=== PATIENT | male | born 1970 | race African-American/Black ===

== ENCOUNTER 2022-05-12 17:30 | Emergency (ER) | payer MEDICAID ==
[~2022-05-12] VITALS: Ht 165.1 cm; Wt 68.9 kg
[2022-05-12] MEDS ORDERED: HALOPERIDOL LACTATE INJ 5 MG/ML VIAL IM ONE (18:00)
[2022-05-12] MEDS ORDERED: diphenhydrAMINE HCL 50 MG/ML VIAL IM ONE (18:00)
[2022-05-12] MEDS ORDERED: LORAZEPAM INJ 2 MG/ML VIAL IM ONE (18:00)
[2022-05-12] MEDS ORDERED: HALOPERIDOL LACTATE INJ 5 MG/ML VIAL ONE (18:25)
[2022-05-12] MEDS ORDERED: diphenhydrAMINE HCL 50 MG/ML VIAL ONE (18:25)
[2022-05-12] MEDS ORDERED: LORAZEPAM INJ 2 MG/ML VIAL ONE (18:26)
[2022-05-12 19:31] LABS: CALCIUM, SERUM 8.5 mg/dL (8.5-10.1); CARBON DIOXIDE 31 mmol/L (21-32); CHLORIDE 112 mmol/L (98-107); CREATININE 1.1 mg/dL (0.6-1.3); GLUCOSE 85 mg/dL (74-106); SODIUM SERUM 139 mmol/L (136-145); UREA NITROGEN, BLOOD 16 mg/dL (7-18)
[2022-05-12 19:35] LABS: BILIRUBIN,URINE 1+ (NEGATIVE); COLOR,URINE DARK YELLOW (YELLOW); LEUKOCYTE ESTERASE ,URINE NEGATIVE (NEGATIVE); NITRITE, URINE NEGATIVE (NEGATIVE); PROTEIN,URINE TRACE mg/dl (NEGATIVE); UGLUCOSE NEGATIVE (NEGATIVE); UROBILINOGEN,URINE 0.2 EU/dL (0.2)
[2022-05-12 19:37] LABS: ALANINE AMINOTRANSFERASE 25 U/L (12-78); ALBUMIN 3.3 g/dL (3.4-5.0); ALCOHOL, BLOOD < 3 mg/dL (0-0); ALKALINE PHOSPHATASE 100 U/L (46-116); ASPARTATE AMINOTRANSFERASE 28 U/L (15-37); BILIRUBIN,DIRECT 0.1 mg/dL (0.0-0.2); BILIRUBIN,TOTAL 0.2 mg/dL (0.2-1.0); TOTAL PROTEIN, SERUM 6.8 g/dL (6.4-8.2)
[2022-05-12 19:40] LABS: ACETAMINOPHEN 0 ug/ml (10-30)
[2022-05-12 19:41] LABS: BACTERIA,URINE Rare /HPF (None Seen); RBC,URINE 0-2 /HPF (0-2); SQUAMOUS EPITHELIAL CELL,UR Few /HPF (None Seen); WBC,URINE 0-2 /HPF (0-3)
[2022-05-12 19:55] LABS: BASOPHILS % (AUTO) 0.8 % (0.0-2.0); EOSINOPHILS % (AUTO) 1.1 % (0.0-6.0); HEMATOCRIT 26 % (39-51); HEMOGLOBIN 8.1 g/dL (13.5-17.5); LYMPHOCYTES # (AUTO) 2.2 K/uL (0.8-4.8); LYMPHOCYTES % (AUTO) 34.4 % (20.0-44.0); MEAN CORPUSCULAR HGB CONC 31 g/dl (31.0-36.0); MEAN CORPUSCULAR VOLUME 68 fL (80-96); MONOCYTES # (AUTO) 0.6 K/uL (0.1-1.30); MONOCYTES % (AUTO) 9.5 % (2.0-12.0); NEUTROPHILS # (AUTO) 3.4 K/uL (1.8-8.9); NEUTROPHILS % (AUTO) 54.2 % (43.0-81.0); PLATELET COUNT (AUTO) 459 K/uL (150-450); RED BLOOD CELL COUNT(AUTO) 3.85 MIL/uL (4.5-6.0); WHITE BLOOD COUNT (AUTO) 6.3 K/uL (4.3-11.0)
--- NOTE | 2022-05-12 21:09 | NUR ---
COVID SWAB COLLECTED AND SENT TO LAB.
--- NOTE | 2022-05-13 07:05 | NUR ---
ZAHIDA AT BEDSIDE FOR EVAL. 5150 HOLD BROKEN.
--- NOTE | 2022-05-13 08:00 | NUR ---
Pt AAO, Apprpriate/responsive. Able to follow commands GCS-15. BRP. Ambulatory- gait steady Ate 2 breakfasts
--- NOTE | 2022-05-13 08:53 | NUR ---
Pt states "Ok Im done- see you later." Walked out/eloped prior to discharge instructions. Aprrpriately clothed and took 2warm blankets
[2022-05-13 08:55] VITALS: BP 125/18
== END 2022-05-13 08:56 | disposition left against medical advice (07) ==
LOC: EDBD 17:33 → ER 17:33
DX: R46.89 Other symptoms and signs involving appearance and behavior (principal); R46.2 Strange and inexplicable behavior; Z20.822 Contact with and (suspected) exposure to COVID-19
CPT/HCPCS: 99285; 96372 ×2; 85025; 80048; 80076; 81001; 36415; 87426; 80143; 80320; 80307; J2060; J1200; J1630; C9803; G0480